=== PATIENT | female | born 1945 | race African-American/Black ===

== ENCOUNTER 2020-10-04 15:23 | Emergency (ER) | payer MEDICAID, MEDICARE ==
[~2020-10-04] VITALS: Ht 172.7 cm; Wt 93.8 kg
[2020-10-04] MEDS ORDERED: ACETAMINOPHEN 325MG TABLET PO ONE (17:15)
[2020-10-04 19:03] LABS: EOSINOPHILS % 0.7 % (0.0-5.0); HEMATOCRIT. 35.5 % (36.0-48.0); HEMOGLOBIN. 12.1 g/dL (12.0-16.0); LYMPHOCYTES % 35.1 % (20.0-50.0); MEAN CORPUSCULAR HEMOGLOBIN 32.3 pg (28.0-32.0); MEAN CORPUSCULAR VOLUME 95.2 fL (81.0-99.0); MONOCYTES % 13.6 % (2.0-8.0); NEUTROPHILS % 49.6 % (40.0-76.0); PLATELET 215 x1000/uL (130-400); RED BLOOD CELL COUNT 3.73 mill/uL (4.2-5.4); RED CELL DISTRIBUTION WIDTH 14.2 % (11.6-14.6)
[2020-10-04 19:11] LABS: CHLORIDE 108 mEq/L (98-107)
[2020-10-04 19:56] VITALS: BP 174/81
== END 2020-10-04 20:34 | disposition home or self-care (01) ==
LOC: ER 16:27
DX: S90.562A Insect bite (nonvenomous), left ankle, initial encounter (principal); M79.10 Myalgia, unspecified site; E11.9 Type 2 diabetes mellitus without complications; I10 Essential (primary) hypertension; Z88.5 Allergy status to narcotic agent; W57.XXXA Bitten or stung by nonvenomous insect and other nonvenomous arthropods, initial encounter; Y93.89 Activity, other specified; Y92.018 Other place in single-family (private) house as the place of occurrence of the external cause
CPT/HCPCS: 36415; 80053; 85025; 93005; 93970; 99285